=== PATIENT | male | born 1955 | race Caucasian/White ===

== ENCOUNTER 2023-05-05 12:04 | Inpatient (IN) | payer MEDICARE, OTHER, SELFPAY ==
[2023-05-05 08:44] VITALS: BMI 26.1
[2023-05-05 08:50] VITALS: BP 147/76
[2023-05-05 08:54] LABS: % Basophils 0.4 % (0-2); % Immature Granulocytes 0.2 % (0-0.5); % Monocytes 5.2 % (1.7-9.3); % Neutrophils 81.2 % (42.2-75.2); Absolute Eosinophils 0.1 10^3/uL (0-0.7); Absolute Lymphocytes 1.1 10^3/uL (1.2-3.4); Absolute Monocytes 0.5 10^3/uL (0.1-0.6); Absolute Neutrophils 7.5 10^3/uL (1.4-6.5); Hematocrit 46.5 % (39.0-52.0); Hemoglobin 16.6 g/dL (13.0-18.0); Mean Corp Hgb Conc. 35.7 g/dL (33.0-37.0); Mean Corpuscular Hgb 33.5 pg (27.0-31.0); Mean Corpuscular Volume 93.9 fL (80.0-94.0); Mean Platelet Volume 10.4 fL (7.4-10.4); Nucleated Red Blood Cells % 0 % (-); Platelet Count 264 10^3/uL (130-400); Red Blood Cell Count 4.95 10^6/uL (4.70-6.10); Red Cell Dist. Width 12.9 % (11.5-14.5); White Blood Cell Count 9.2 10^3/uL (4.8-10.8)
[2023-05-05 09:00] VITALS: BP 116/74
--- NOTE | 2023-05-05 09:08 | ED.GENMED ---
History of Present Illness
General
Chief Complaint: Vomiting Blood
Source: patient
Time Seen by Provider: 05/05/23 08:47
Travel History
Have you had any contact with someone who has COVID-19?: No
Do you have any symptoms of coronavirus? Fever > 100 degrees, chills, cough, shortness of breath, sore throat, loss of taste or smell, muscle aches, or headache?: No
History of Present Illness
History of Present Illness:
67-year-old male presents emergency room complaining of nausea vomiting. Patient vomited this morning around 8 AM. He states he woke up around 5 feeling nauseous. Has been having nausea in the mornings for the past few days. He also has
indigestion and heartburn. Patient has history of a anaplastic astrocytoma with resection. He also has a [employer] shunt. Due to the above he has significant limitations in his physical abilities. He denies headache. He denies any fever or chills. He
denies any significant abdominal pain other than the indigestion.
Past History
Past History
ED Past Medical History: Cancer (Brain astrocytoma with radiation and chemotherapy 2006 and hydrocephalus w/ shunt placement)
ED Past Surgical History: Other (brain biopsy and shunt placement)
Social History
Tobacco: Non-smoker
Alcohol: None
Drug: None
Personal:
Living: with family
Employment: Employed
Family History
Family History: Other (n/c)
Phy Exam
Physical Exam
Physical Exam:
General: Awake, Alert, Oriented X3. No acute distress.
Vitals: unremarkable
Head: Atraumatic
Eyes: Pupils equal, EOMI
Throat: Airway intact, no exudates
Neck: Trachea midline
Lungs: Clear and equal b/l
Heart: Regular rate, no murmurs
Abd: Soft, Nontender, No pulsatile mass
Neuro: Chronic extremity weakness but no new findings
Skin: Warm, dry, no rash
Extremities: pulses equal b/l, no edema
Course
Orders/Labs/Results
Orders:
Orders
05/05/23 08:44
EKG [Electrocardiogram (*1)] Urgent
Reason for Study: Fatigue / Weakness
EKG- Treatment ONCE
05/05/23 08:48
Type+Screen Urgent
Complete Blood Count/With Diff Urgent
Comprehensive Metabolic Panel Urgent
05/05/23 09:06
0.9% Sodium Chloride 1000 ml [Nss] 1,000 ml IV BOLUS
Ondansetron Injectable [Zofran] 4 mg IV NOW STA
05/05/23 09:21
US Abdomen Complete/Upper Urgent
Comment:
Reason For Exam: upper abd pain, elevated lft's
05/05/23 11:41
Pantoprazole [Protonix IV] 80 mg IV NOW STA
05/05/23 11:59
Admit/Transfer Patient As Directed
Co-Sign Provider:
Level of Care: Inpatient admission
Assign to:: Medical/Surgical
Physician / Group: Hospitalist
Diagnosis: Vomiting
Reason for Hospitalization: .
Expected length of stay greater than two midnights?: Yes
ELOS- Estimated Length of Stay in days: 3
I certify the patient meets the requirements for IP care: Yes
05/05/23 14:17
Consult Gastroenterology [GASTROINTESTINAL CONSULT] Routine
Consulting Provider: Hilario Carrion
Was physician already notified: Yes
Reason for consult: Vomiting
DX Deep Vein Thrombosis Video Routine
05/05/23 20:00
Heparin 5,000 units SC Q12
Abnormal Lab Results
05/05/23
08:48
MCH 33.5 H pg
(27.0-31.0)
Absolute Neuts (auto) 7.5 H 10^3/uL
(1.4-6.5)
Absolute Lymphs (auto) 1.1 L 10^3/uL
(1.2-3.4)
Neutrophils % 81.2 H %
(42.2-75.2)
Lymphocytes % 12.0 L %
(20.5-51.1)
Glucose 192 H mg/dl
(70-99)
Total Bilirubin 4.8 H mg/dl
(0.2-1.3)
AST 125 H U/L
(17-59)
ALT 487 H U/L
(0-50)
Alkaline Phosphatase 243 H U/L
(38-126)
05/05/23 08:48
05/05/23 08:48
Vital Signs
Initial and Last Documented VS:
Initial Vital Signs
Pulse Resp Pulse Ox
81 18 95
05/05/23 08:49 05/05/23 08:49 05/05/23 08:49
Last Documented Vital Signs
Temp Pulse Resp BP Pulse Ox
98.4 F 71 15 119/63 93
05/05/23 08:50 05/05/23 13:30 05/05/23 13:30 05/05/23 10:00 05/05/23 13:30
MDM/Problems Addressed
Differential Diagnosis Includes:
gastritis, PUD, choledocholithiasis,
MDM/Problems Addressed:
Pt presents with nausea and vomiting. He believes he vomited bloody emesis this morning. On physical exam he was noted to have scleral icterus. Lab work confirms the presence of elevated bilirubin level as well as elevated LFTs. Ultrasound was
obtained which shows a contracted gallbladder. Patient has had no further vomiting here in the emergency room. Nausea is improved with antiemetics. Stool is heme positive but it is brown stool not melanotic. Discussed with gastroenterology.
Will hospitalize the patient for monitoring of GI bleeding as well as evaluation of the elevated LFTs. Likely patient will have an MRCP tomorrow. Dose of IV Protonix given here.
*EKG
Interpreted by ED Provider?: Yes
Interpretation: normal
Heart Rate: 81
Rate: normal
Rhythm: sinus
Holley: normal axis
Interval: normal interval
QRS Pattern: normal QRS
Ischemia: no ischemia
*Compressor Battery Pellets Interpretation
Rate: normal
Interpretation: normal
Heart Rate: 81
Rhythm: sinus
*Critical Care Note
Total Time (30-74mins, 75-104mins- exclusive of procedures): Not Applicable
ED Attending Note
-
Portions of this chart may have been created with voice recognition software.� Occasional wrong word or��sound alike� substitutions may have occurred due to the inherent limitations of voice recognition software.
Discharge Plan
Departure
Patient Disposition: Admit
Date of Disposition: 05/05/23
Time of Disposition: 11:45
Admit to: Med/Surg
Presentation/result/management discussed w/ accepting MD/DO: Hospitalist
Condition: Fair
Discharge Problem:
Hematemesis, Elevated LFTs
Interventions
Interventions:
*Risk Screen - Suicide Last Done: 05/05/23 08:57
*General Assessment Last Done: 05/05/23 08:57
*Neglect/Abuse Screening Last Done: 05/05/23 08:57
*ED COVID-19 Vaccine History Last Done: 05/05/23 08:50
*Nursing Disposition Last Done: 05/05/23 14:11
QH-Lubmtb-Zvwoweswzr Assessment Last Done: 05/05/23 09:00
ED- Cardiac Assessment Last Done: 05/05/23 08:59
ED- Pulmonary Assessment Last Done: 05/05/23 08:58
Discharge Date and Time
Discharge Date/Time: 05/05/23 14:18
[2023-05-05] MEDS: ZOFRAN 4 MG IV (09:11)
[2023-05-05] MEDS: NSS 1000 IV (09:12)
[2023-05-05 09:13] LABS: ALT (SGPT) 487 U/L (0-50); AST (SGOT) 125 U/L (17-59); Albumin 4.3 g/dl (3.5-5.0); Alkaline Phosphatase 243 U/L (38-126); Blood Urea Nitrogen 13 mg/dl (9-20); Calcium 9.7 mg/dl (8.4-10.2); Carbon Dioxide 22 mmol/L (22-30); Chloride 106 mmol/L (98-107); Estimated Creatinine Clearance 73 ml/min; Glucose 192 mg/dl (70-99); Potassium 4.1 mmol/L (3.5-5.1); Sodium 136 mmol/L (135-145); Total Bilirubin 4.8 mg/dl (0.2-1.3); Total Protein 7.5 g/dl (6.3-8.2); eGFR > 60.00
[2023-05-05 10:00] VITALS: BP 119/63
--- NOTE | 2023-05-05 11:59 | HPS.HSE ---
Family Physician
-
Family Physician: Delta Canchola
Chief Complaint
-
Vomiting this morning
History of Present Illness
67 years old male came from home. History taken from the patient and his at bedside. The patient has been having nighttime nausea with vomiting in the last 2 to 3 days. He vomited coffee-ground emesis this morning and was brought into the
emergency room. He did not have chest pain or fever. He was given Zofran and felt fine. Currently he denies abdominal pain, reports feeling hungry would like to eat. Patient has history of hydrocephalus with shunt secondary to brain tumor that
was treated in 2006. He denies chest pain, headache, blurred vision, chills. In the ER , white count 9.2, hemoglobin 16.6. Normal potassium.
Medical History
Past Medical History
Past Medical History: Reports Other ( NPH with shunt placement, astrocytoma s/p radiation chemotherapy in 2006, hypertension, essential tremor, left hemiparesis, neurogenic bladder, gait dysfunction.)
Past Surgical History: Reports Other (No recent major surgery)
Social History
Tobacco: Non-smoker
Alcohol: None
Drug: None
Personal:
Living: With Family
Employment: Disabled
Family History
Family History: Not pertinent
Allergies / Home Medications
Allergies reflects when Allergies were last updated in [facility].
Home Medications with original date entered in [facility]
Allergy/Medication List:
Allergies
Allergy/AdvReac Type Severity Reaction Status Date / Time
gallidium Allergy Severe facial Uncoded 04/15/20 12:55
flushing
and
swelling
Home Medications
Doxylamine 0 tab PO HS 05/09/20
acetaminophen 325 mg tablet 650 mg PO Q6HPRN PRN MILD PAIN 05/09/20
methylphenidate HCl 10 mg tablet 10 mg PO BID@0700,1300 #120 tabs 05/09/20
propranolol 60 mg capsule,24 hr,extended release 120 mg PO DAILY #180 caps 05/09/20
sertraline 100 mg tablet 100 mg PO DAILY #90 tabs 05/09/20
trazodone 50 mg tablet 25 mg PO HS PRN sleep 05/05/23
Review of Systems
-
History Source: Patient
A 12 point ROS was completed and negative except as noted: Yes
Constitutional: Denies Fever, Night Sweats or Chills
EENT: Denies Sore Throat
Respiratory: Denies Cough
Cardiac: Denies Chest Pain
Abdomen/GI: Reports Nausea and Vomiting; Denies Abdominal Pain or Black Stools
: Denies Dysuria
Musculoskeletal: Denies Joint Pain or Edema
Neurological: Denies Numbness
Endocrine: Denies Temp Intolerance
Hematologic/Lymphatic: Denies Bruising
Psych: Denies Panic Disorder
Physical Exam
Vital Signs
Vital Signs
Temp Pulse Resp BP Pulse Ox
98.4 F 78 18 147/76 95
05/05/23 08:50 05/05/23 09:00 05/05/23 09:00 05/05/23 08:50 05/05/23 09:00
Physical Exam
General: No Apparent Distress and Comfortable
HEENT: Moist mucous membranes and Atraumatic
Respiratory: Clear
Cardiac: S1/S2 and Regular Rhythm
GI: Soft, Non Tender, Non Distended and Normal Bowel Sounds
Genito-urinary: No costovertebral tender
Musculoskeletal: No Cyanosis and No Edema
Skin: Warm; No Jaundice
Neuro: AO x 3 and Other (Chronic bilateral lower extremity weakness, left hemiparesis)
Psych: Calm; No Confused or Agitated
Laboratory Results
-
05/05/23 08:48
05/05/23 08:48
Laboratory Results
Total Bilirubin 4.8 mg/dl (0.2-1.3) H 05/05/23 08:48
AST 125 U/L (17-59) H 05/05/23 08:48
ALT 487 U/L (0-50) H 05/05/23 08:48
Alkaline Phosphatase 243 U/L (38-126) H 05/05/23 08:48
Impression/Plan
-
67 years old male presented with coffee-ground emesis
# Upper GI bleeding/vomiting
Admit the patient to the hospital
Monitor the patient on telemetry
Hemoglobin on admission around 16
Repeat hemoglobin later today
Antinausea medication
Protonix drip
Patient has no abdominal pain or nausea current time. No fever. No leukocytosis. No headache. No abdominal tenderness on deep palpation.
Case to be a liquid diet and nothing by mouth after midnight
Discussed with gastroenterology doctor
Appreciate GI help
# History of astrocytoma diagnosed 2006 status post chemotherapy and radiation 2006. He later developed hydrocephalus and had shunt.
Currently he is on disability. Bilateral lower extremity weakness. Wheelchair-bound but has good shoulder strength to transfer to wheelchair. Left hemiparesis.
Patient denies fever or chills. No leukocytosis. No abdominal pain or tenderness. No headache or blurred vision.
Patient has not had follow-up with a scan since 3 4 years ago. Will do head scan
# History of neurogenic bladder. Urinary incontinence. Able to control bowel movements.
# Primary hypertension. Continue with home medication. Blood pressure on admission 147/76.
# Insomnia, continue with sertraline.
# DVT prophylaxis
# Full code
Total time spent to see the patient, examine the patient on the floor, review data and lab results, discuss treatment plan with the patient, , GI doctor, Nursing staff and ER doctor around 75 minutes
[2023-05-05] MEDS: PROTONIX IV 80 MG IV (12:40)
[2023-05-05 14:30] VITALS: BMI 26.1
--- NOTE | 2023-05-05 15:00 | PTCARENOTE ---
Received pt from ED. Vital signs stable. Pt denies any chest pain or Shortness of breath. Skin grossly intact. Pt oriented to Unit and Plan of Care.
[2023-05-05 15:14] LABS: Hemoglobin 15.2 g/dL (13.0-18.0)
[2023-05-05] MEDS: PROTONIX 100 IV (15:15)
[2023-05-05 15:48] VITALS: BP 109/69
--- NOTE | 2023-05-05 17:00 | W.PN.UPDATE ---
Update Note
Progress Note Update
Addendum
CAT scan of the head was reviewed. Patient has no new neurological deficit. Suspect chronic changes on CT. Will observe for now.
Ultrasound of the abdomen showed fatty liver with abnormal liver function test, possible liver disease/cirrhosis. Will give the patient empiric IV Rocephin
End
[2023-05-05] MEDS: ROCEPHIN 1000 MG IV (17:12)
[2023-05-05] MEDS: STERILE WATER FOR INJECTION 10 ML IV (17:12)
[2023-05-05 19:41] VITALS: BP 140/74
[2023-05-05] MEDS: HEPARIN 5000 UNITS SC (20:13)
[2023-05-05 22:57] VITALS: BP 110/58
[2023-05-06] MEDS: PROTONIX 100 IV ×3 (00:30→18:54)
[2023-05-06 03:37] VITALS: BP 113/76
[2023-05-06 07:45] VITALS: BP 104/72
--- NOTE | 2023-05-06 08:15 | W.PN.HOSP.TC ---
Today's Communication/Plan
-
MRI/MRCP tomorrow
NPO
Assessment / Plan
Assessment / Plan
Physical Exam
General: No Apparent Distress and Comfortable
HEENT: Moist mucous membranes and Atraumatic
Respiratory: Clear
Cardiac: S1/S2 and Regular Rhythm
GI: Soft, Non Tender, Non Distended and Normal Bowel Sounds
Genito-urinary: No costovertebral tender
Musculoskeletal: No Cyanosis and No Edema
Skin: Warm; No Jaundice
Neuro: AO x 3 and Other (Chronic bilateral lower extremity weakness, left hemiparesis)
Psych: Calm

Assessment/Plan
67 years old male presented with coffee-ground emesis
#Upper GI bleeding/vomiting
#Presentation with coffee-ground emesis
Monitor the patient on telemetry
Hemoglobin on admission around 16
Hgb stable overall
Antinausea medication prn (but make sure QTc is okay)
Protonix drip
Patient has no abdominal pain or nausea current time.� No fever.� No leukocytosis.� No headache.� No abdominal tenderness on deep palpation.
Consulted GI, recommendations appreciated
NPO for MRI/MRCP
Appreciate GI help
Ultrasound of the abdomen showed fatty liver with abnormal liver function test, possible liver disease/cirrhosis. Will give the patient empiric IV Rocephin
# History of brain astrocytoma diagnosed 2006 status post chemotherapy and radiation 2006.� He later developed hydrocephalus and had shunt.
Currently he is on disability.� Bilateral lower extremity weakness.� Wheelchair-bound but has good shoulder strength to transfer to wheelchair.� Left hemiparesis.
Patient denies fever or chills.� No leukocytosis.� No abdominal pain or tenderness.� No headache or blurred vision.
Patient has not had follow-up with a scan since 3 4 years ago.�
CAT scan of the head was reviewed. Patient has no new neurological deficit. Suspect chronic changes on CT. Will observe for now.
# History of neurogenic bladder.� Urinary incontinence.� Able to control bowel movements.
# Primary hypertension.� Continue with home medication.� Blood pressure on admission 147/76.
# Insomnia, continue with sertraline.
# DVT prophylaxis
# Full code
Anticipated Discharge: 24 - 48 hours
Subjective/Interval History
-
Date of Service: May 06, 2023
Patient was seen and examined. Other than wondering if his diet could be upgraded, he had no new symptoms or complaints to report.
Objective Data
-
Labs:
Laboratory Results
05/06/23
08:02
WBC Pending
Hgb Pending
Hct Pending
Plt Count Pending
Sodium Pending
Potassium Pending
Chloride Pending
Carbon Dioxide Pending
BUN Pending
Creatinine Pending
Glucose Pending
Calcium Pending
Total Bilirubin Pending
AST Pending
ALT Pending
Alkaline Phosphatase Pending
Vital Signs:
Vital Signs
Temp Pulse Resp BP Pulse Ox
98.5 F 77 16 104/72 95
05/06/23 07:45 05/06/23 07:45 05/06/23 07:45 05/06/23 07:45 05/06/23 07:45
I&O
05/05/23 05/06/23 05/07/23
06:59 06:59 06:59
Intake Total 480 / 480
Output Total 325 / 325
Balance 155 / 155
[2023-05-06] MEDS: INDERAL LA 120 MG PO (08:45)
[2023-05-06] MEDS: HEPARIN 5000 UNITS SC ×2 (08:45→20:46)
[2023-05-06 08:59] LABS: Hematocrit 40.9 % (39.0-52.0); Hemoglobin 14.2 g/dL (13.0-18.0); Mean Corp Hgb Conc. 34.7 g/dL (33.0-37.0); Mean Corpuscular Hgb 33.7 pg (27.0-31.0); Mean Corpuscular Volume 97.1 fL (80.0-94.0); Platelet Count 208 10^3/uL (130-400); Red Blood Cell Count 4.21 10^6/uL (4.70-6.10); Red Cell Dist. Width 13.2 % (11.5-14.5); White Blood Cell Count 5.2 10^3/uL (4.8-10.8)
[2023-05-06 09:33] LABS: ALT (SGPT) 374 U/L (0-50); AST (SGOT) 106 U/L (17-59); Albumin 3.8 g/dl (3.5-5.0); Alkaline Phosphatase 187 U/L (38-126); Blood Urea Nitrogen 13 mg/dl (9-20); Calcium 9.4 mg/dl (8.4-10.2); Carbon Dioxide 26 mmol/L (22-30); Chloride 105 mmol/L (98-107); Estimated Creatinine Clearance 66 ml/min; Glucose 118 mg/dl (70-99); Magnesium 1.9 mg/dl (1.6-2.3); Potassium 3.9 mmol/L (3.5-5.1); Sodium 138 mmol/L (135-145); Total Bilirubin 2.1 mg/dl (0.2-1.3); Total Protein 6.4 g/dl (6.3-8.2); eGFR > 60.00
[2023-05-06 11:09] VITALS: BP 135/63
--- NOTE | 2023-05-06 12:43 | CON.GI ---
Addendum entered and electronically signed by Hilario Carrion MD 05/06/23 16:01:
I saw and examined the patient.
The CONSULTANT EDUCATION's note was reviewed and I agree with the note.
67-year-old male with past medical history of astrocytoma s/p radiation and chemotherapy in 2006, NPH with shunt, hypertension, essential tremor, left hemiparesis, neurogenic bladder with gait dysfunction who presents to the emergency room with
nocturnal nausea and vomiting for the last couple days.� Patient with brown emesis in the morning that he was brought to the emergency room and we were asked to evaluate for the same as well as elevated LFTs.� The patient states that this past
Saturday he started to feel epigastric discomfort.� He thought that it may have been indigestion so he started eating Tums.� He states he ate 4-6 of these a day.� This did not alleviate his symptoms.� He states that he just had a generalized
discomfort in his upper abdomen.� He cannot describe this further.� He noticed the following day he started having 'cola colored' urine.� Him and his also noticed the color of his stool became plexiglas former and was a campos color.� On Saturday he had
vomiting which was brown in color.� This was not coffee-ground like but more of a straight brown.� They did state that there was a slight red tinge to the outer edges of the vomitus.� Patient with WBC 5.2, hemoglobin of 14.2 down from 16.6 however
his baseline appears to be around 14.7, MCV of 97.1, MCH 33.7, platelets 208, sodium 138, potassium 3.9 chloride 105, CO2 26, BUN of 13, creatinine 1.0, glucose 118, total bilirubin 2.1 down from 4.8, this was not fractionated, AST of 106 down from
125, ALT 374 down from 47, alk phos 187 down from 243.� Ultrasound of the abdomen shows liver at upper limits of normal.� Increased echogenicity throughout consistent with fatty infiltration.� Overall echotexture is somewhat coarsened.� 1.4 cm
anechoic structure in the right hepatic lobe most consistent with a simple cyst.� Smaller 6 mm area also likely represents cyst.� There is no intra or extrahepatic biliary dilatation.� CBD measures 4 mm.� Gallbladder is contracted with gallstones.
Impression:
--Abdominal pain/vomiting/coffee-ground emesis/elevated LFT-likely biliary etiology. Currently feeling better. LFTs trending down. Possible passed stone
-- History of astrocytoma s/p radiation and chemotherapy in 2006
-- Left hemiparesis/wheelchair-bound
-- Neurogenic bladder
plan
Will get MRI/MRCP without gado
Trend LFT
N.p.o. for now
Continue PPI
Antiemetics as needed
Surgical eval if continues to be symptomatic
Original Note:
Consultation
-
Date/Time Consultation Requested: 05/05/23 1417
Date/Time Consultation Performed: 05/06/23 1243
Requesting Provider: Dr. Abel
Performing Provider: Dr. Carrion/STEPHY Kay
Reason for Consultation: vomiting
Medical History
Chief Complaint / HPI
Chief Complaint: n/v
History of Present Illness:
67-year-old male with past medical history of astrocytoma s/p radiation and chemotherapy in 2006, NPH with shunt, hypertension, essential tremor, left hemiparesis, neurogenic bladder with gait dysfunction who presents to the emergency room with
nocturnal nausea and vomiting for the last couple days. Patient with brown emesis in the morning that he was brought to the emergency room and we were asked to evaluate for the same as well as elevated LFTs. The patient states that this past
Saturday he started to feel epigastric discomfort. He thought that it may have been indigestion so he started eating Tums. He states he ate 4-6 of these a day. This did not alleviate his symptoms. He states that he just had a generalized
discomfort in his upper abdomen. He cannot describe this further. He noticed the following day he started having 'cola colored' urine. Him and his also noticed the color of his stool became plexiglas former and was a campos color. On Saturday he had
vomiting which was brown in color. This was not coffee-ground like but more of a straight brown. They did state that there was a slight red tinge to the outer edges of the vomitus. Because of this and his discomfort they decided to come to the
emergency room. The patient denies any fevers, chills, melena, hematochezia, dysphagia or odynophagia. He denies any early satiety or unintentional weight loss. He denies any new medications, Tylenol, hepatitis, jaundice or liver disease. He
denies any tattoos or piercings. He has had no new meds or changes in medications. He denies any raw or spoiled food. There is been no sick contacts.
Past Medical History
Past Medical History: Other (Astrocytoma status postradiation chemotherapy, NPH with shunt, hypertension, essential tremor, left hemiparesis, neurogenic bladder, gait dysfunction)
Past Surgical History: Other (OPERATIONS WELDER shunt, brain biopsy, OPERATIONS WELDER shunt revision)
Social History
Tobacco: Non-Smoker
Alcohol: None
Drug: None
Personal:
Living: With Family
Employment: Disabled
Family History
Family History: Other (No family history of gastrointestinal malignancy or inflammatory bowel disease)
Allergies / Home Medications
Allergy/AdvReac Type Severity Reaction Status Date / Time
gallidium Allergy Severe facial Uncoded 04/15/20 12:55
flushing
and
swelling
Medication Instructions Recorded
acetaminophen 325 mg tablet 650 mg PO Q6HPRN PRN MILD PAIN 05/09/20
propranolol 60 mg capsule,24 120 mg PO DAILY #180 caps 05/09/20
hr,extended release
trazodone 50 mg tablet 25 mg PO HS PRN sleep 05/05/23
Doxylamine 0 tab PO HS Sleep 05/06/23
methylphenidate HCl 10 mg tablet 10 mg PO BID@0700,1300 ADHD 05/06/23
sertraline 100 mg tablet 100 mg PO DAILY Depression 05/06/23
Review of Systems
-
All other systems: A 12 pt ROS was Negative except as stated above in HPI
Vital Signs
Temp Pulse Resp BP Pulse Ox
98.0 F 74 16 135/63 97
05/06/23 11:09 05/06/23 11:09 05/06/23 11:09 05/06/23 11:09 05/06/23 11:09
Physical Exam
Exam
General: No Apparent Distress
HEENT: Anicteric
Respiratory: Clear
Cardiac: Regular Rhythm
GI: Soft, Non Tender, Non Distended and Normal Bowel Sounds
Skin: Warm and Dry
Neuro: AO x 3
Psych: Calm
Results
WBC 5.2 10^3/uL (4.8-10.8) 05/06/23 08:02
Hgb 14.2 g/dL (13.0-18.0) 05/06/23 08:02
Hct 40.9 % (39.0-52.0) 05/06/23 08:02
MCV 97.1 fL (80.0-94.0) H 05/06/23 08:02
Plt Count 208 10^3/uL (130-400) D 05/06/23 08:02
Absolute Neuts (auto) 7.5 10^3/uL (1.4-6.5) H 05/05/23 08:48
Sodium 138 mmol/L (135-145) 05/06/23 08:02
Potassium 3.9 mmol/L (3.5-5.1) 05/06/23 08:02
Chloride 105 mmol/L (98-107) 05/06/23 08:02
Carbon Dioxide 26 mmol/L (22-30) 05/06/23 08:02
BUN 13 mg/dl (9-20) 05/06/23 08:02
Creatinine 1.1 mg/dL (0.7-1.3) 05/06/23 08:02
Calcium 9.4 mg/dl (8.4-10.2) 05/06/23 08:02
Total Bilirubin 2.1 mg/dl (0.2-1.3) H D 05/06/23 08:02
AST 106 U/L (17-59) H 05/06/23 08:02
ALT 374 U/L (0-50) H 05/06/23 08:02
Alkaline Phosphatase 187 U/L (38-126) H 05/06/23 08:02
Diagnostic Image Results:
CT Head:
IMPRESSION:
There is a small focus of increased density within the right parietal lobe at the campos and white matter junction. Morphologically, I feel that this is most likely a small focus of calcification. However, a small focus of hemorrhage is possible. See
above discussion. As warranted, short-term interval CT follow-up could be considered, with calcification expected to persist, while hemorrhage would be expected to slowly decrease in density with time.
Since examination 2019, there has been progressive volume loss and decreased density within the white matter of the right frontal and parietal lobes. As this appears to relatively spare the cortex, this is most likely on the basis of changes from
radiation therapy. However, this could also possibly represent changes from interval infarction.
Electronically signed by Dwight Min MD 05/05/2023 2:29 PM
Ultrasound abdomen:
Contracted gallbladder, with shadowing posteriorly, consistent with gallstones, however the gallbladder could not be fully evaluated due to the contracted state. There is no pericholecystic fluid and there is a negative sonographic Stallworth's sign.
Pancreas could not be visualized.
Fatty infiltration of the liver.
Electronically signed by Katrina Saul MD 05/05/2023 11:27 AM
Prior GI Procedures:
EGD: None
Colonoscopy: 10/31/2015 ([facility]) �� - The entire examined colon is normal.
�� � � � � � � � � � - The examined portion of the ileum was normal.
Assessment / Plan
-
67-year-old male with past medical history of astrocytoma s/p radiation and chemotherapy in 2006, NPH with shunt, hypertension, essential tremor, left hemiparesis, neurogenic bladder with gait dysfunction who presents to the emergency room with
nocturnal nausea and vomiting for the last couple days. Patient with brown emesis in the morning that he was brought to the emergency room and we were asked to evaluate for the same as well as elevated LFTs. The patient states that this past
Saturday he started to feel epigastric discomfort. He thought that it may have been indigestion so he started eating Tums. He states he ate 4-6 of these a day. This did not alleviate his symptoms. He states that he just had a generalized
discomfort in his upper abdomen. He cannot describe this further. He noticed the following day he started having 'cola colored' urine. Him and his also noticed the color of his stool became plexiglas former and was a campos color. On Saturday he had
vomiting which was brown in color. This was not coffee-ground like but more of a straight brown. They did state that there was a slight red tinge to the outer edges of the vomitus. Patient with WBC 5.2, hemoglobin of 14.2 down from 16.6 however
his baseline appears to be around 14.7, MCV of 97.1, MCH 33.7, platelets 208, sodium 138, potassium 3.9 chloride 105, CO2 26, BUN of 13, creatinine 1.0, glucose 118, total bilirubin 2.1 down from 4.8, this was not fractionated, AST of 106 down from
125, ALT 374 down from 47, alk phos 187 down from 243. Ultrasound of the abdomen shows liver at upper limits of normal. Increased echogenicity throughout consistent with fatty infiltration. Overall echotexture is somewhat coarsened. 1.4 cm
anechoic structure in the right hepatic lobe most consistent with a simple cyst. Smaller 6 mm area also likely represents cyst. There is no intra or extrahepatic biliary dilatation. CBD measures 4 mm. Gallbladder is contracted with gallstones.
Impression:
Vomiting
Abdominal pain
Elevated LFTs
Plan:
-N.p.o. until imaging resulted
-MRI/MRCP, no anshul patient has an allergy
-Fractionate bilirubin
-Hepatitis panel
-Trend LFTs
-Continue PPI
-CBC in the a.m.
-Consider surgical consult
-Patient will likely need outpatient workup for fatty liver, including FibroScan.
Data Reviewed
-
Radiology: Report Reviewed by me
Old Records: Reviewed
-
-
Thank you for consultation and allowing me to participate in the patient's care. Please call the stock preparation supervisor GI physician during the after hours with any questions or concerns.
--- NOTE | 2023-05-06 15:48 | CM ---
home visit field care manager reviewed patient's chart and met with patient and patient resides with his spouse in a 2 story home, patient requires assist and has an aide in home, to assist with adl's from [employer]', patient has a walker, cane and wheelchair
in home and chair glide to 2nd floor where patient sleeps. Patient has a prescription plan and uses [facility].
PCP: Dr Canchola
Plan; Home with spouse when stable with aide.
[2023-05-06 15:56] VITALS: BP 135/68
[2023-05-06 17:07] VITALS: BMI 26.1
[2023-05-06] MEDS: STERILE WATER FOR INJECTION 10 ML IV (17:09)
[2023-05-06] MEDS: ROCEPHIN 1000 MG IV (17:09)
[2023-05-06 18:48] LABS: Hepatitis B Surface Antigen Negative (Negative)
[2023-05-06 19:05] LABS: Hepatitis B Surface Antibody Negative; Hepatitis C Antibody Negative (Negative)
[2023-05-06 21:18] VITALS: BP 136/84
[2023-05-06] MEDS: DESYREL 25 MG PO (21:59)
[2023-05-06 23:55] VITALS: BP 110/55
[2023-05-07 04:21] VITALS: BP 135/65
[2023-05-07] MEDS: PROTONIX 100 IV ×2 (04:57→14:49)
[2023-05-07 06:00] VITALS: BMI 24.5
[2023-05-07 07:20] VITALS: BP 142/72
[2023-05-07 08:06] LABS: ALT (SGPT) 320 U/L (0-50); AST (SGOT) 92 U/L (17-59); Albumin 3.8 g/dl (3.5-5.0); Alkaline Phosphatase 177 U/L (38-126); Direct Bilirubin 0.8 mg/dl (0.0-0.4); Total Bilirubin 1.6 mg/dl (0.2-1.3); Total Protein 6.5 g/dl (6.3-8.2)
[2023-05-07] MEDS: HEPARIN 5000 UNITS SC ×2 (09:22→19:48)
[2023-05-07] MEDS: INDERAL LA 120 MG PO (09:22)
[2023-05-07 10:39] LABS: % Basophils 1.4 % (0-2); % Eosinophils 6.3 % (0-6); % Immature Granulocytes 0.2 % (0-0.5); % Lymphocytes 26.9 % (20.5-51.1); % Monocytes 7.9 % (1.7-9.3); % Neutrophils 57.3 % (42.2-75.2); Absolute Basophils 0.1 10^3/uL (0-0.2); Absolute Eosinophils 0.3 10^3/uL (0-0.7); Absolute Lymphocytes 1.3 10^3/uL (1.2-3.4); Absolute Monocytes 0.4 10^3/uL (0.1-0.6); Absolute Neutrophils 2.8 10^3/uL (1.4-6.5); Hematocrit 41.4 % (39.0-52.0); Hemoglobin 15.1 g/dL (13.0-18.0); Mean Corp Hgb Conc. 36.5 g/dL (33.0-37.0); Mean Corpuscular Hgb 34.3 pg (27.0-31.0); Mean Corpuscular Volume 94.1 fL (80.0-94.0); Mean Platelet Volume 10.9 fL (7.4-10.4); Nucleated Red Blood Cells % 0 % (-); Platelet Count 222 10^3/uL (130-400); Red Cell Dist. Width 12.9 % (11.5-14.5); White Blood Cell Count 4.9 10^3/uL (4.8-10.8)
[2023-05-07 10:44] LABS: ALT (SGPT) 324 U/L (0-50); AST (SGOT) 91 U/L (17-59); Alkaline Phosphatase 179 U/L (38-126); Blood Urea Nitrogen 14 mg/dl (9-20); Calcium 9.8 mg/dl (8.4-10.2); Carbon Dioxide 22 mmol/L (22-30); Chloride 108 mmol/L (98-107); Estimated Creatinine Clearance 73 ml/min; Glucose 116 mg/dl (70-99); Potassium 3.9 mmol/L (3.5-5.1); Sodium 139 mmol/L (135-145); Total Bilirubin 1.6 mg/dl (0.2-1.3); Total Protein 6.8 g/dl (6.3-8.2); eGFR > 60.00
[2023-05-07 11:55] VITALS: BP 159/76
[2023-05-07] MEDS: MIRALAX 17 GRAMS PO (12:46)
[2023-05-07] MEDS: ZOLOFT 100 MG PO (13:22)
--- NOTE | 2023-05-07 13:58 | PTOTSP ---
ST Dysphagia Evaluation
Oropharyngeal function appears intact at the bedside
Pt received awake/alert oriented x4 with spouse present at the bedside. Ate full liquid meal without difficulty. Per pt/spouse report no chewing or swallowing difficulty prior to this admission. Speech/language/cog at baseline
Self presentation of purees and thin liquids demo adequate oral access/containment, functional bolus manipulation and bolus was orally cleared. Thin liquids by straw sip swallow appears prompt. No overt s/sx of aspiration observed.
Recommend
1. Advance diet as tolerated to regular solids/thin liquids, per physician/GI
2. Meds oral with sips of water
3. No further acute SENIOR APPLICATION SOFTWARE ENGINEER needs. SENIOR APPLICATION SOFTWARE ENGINEER signing off please reconsult as needed
--- NOTE | 2023-05-07 14:18 | CM ---
Home with aides when stable.
Plan; Home with aides when stable.
[2023-05-07 15:55] VITALS: BP 143/84
--- NOTE | 2023-05-07 17:04 | W.PN.HOSP.TC ---
Today's Communication/Plan
-
MRI/MRCP today
Assessment / Plan
Assessment / Plan
Physical Exam
General: No Apparent Distress and Comfortable
HEENT: Moist mucous membranes and Atraumatic
Respiratory: Clear
Cardiac: S1/S2 and Regular Rhythm
GI: Soft, Non Tender, Non Distended and Normal Bowel Sounds
Musculoskeletal: No Cyanosis and No Edema
Skin: Warm. Dry.
Neuro: AAO x 3 and Other (Chronic bilateral lower extremity weakness, left hemiparesis)
Psych: Calm

Assessment/Plan
67 years old male presented with coffee-ground emesis
#Upper GI bleeding/vomiting
#Presentation with coffee-ground emesis
Monitor the patient on telemetry
Hemoglobin on admission around 16
Hgb stable overall
Antinausea medication prn (but make sure QTc is okay)
Protonix drip
Patient has no abdominal pain or nausea current time.� No fever.� No leukocytosis.� No headache.� No abdominal tenderness on deep palpation.
Consulted GI, recommendations appreciated
MRI/MRCP today
Appreciate GI help
Ultrasound of the abdomen showed fatty liver with abnormal liver function test, possible liver disease/cirrhosis. Will give the patient empiric IV Rocephin
# History of brain astrocytoma diagnosed 2006 status post chemotherapy and radiation 2006.� He later developed hydrocephalus and had shunt.
Currently he is on disability.� Bilateral lower extremity weakness.� Wheelchair-bound but has good shoulder strength to transfer to wheelchair.� Left hemiparesis.
Patient denies fever or chills.� No leukocytosis.� No abdominal pain or tenderness.� No headache or blurred vision.
Patient has not had follow-up with a scan since 3 4 years ago.�
CAT scan of the head was reviewed. Patient has no new neurological deficit. Suspect chronic changes on CT. Will observe for now.
# History of neurogenic bladder.� Urinary incontinence.� Able to control bowel movements.
# Primary hypertension.� Continue with home medication.� Blood pressure on admission 147/76.
# Insomnia, continue with sertraline.
# DVT prophylaxis
# Full code
Anticipated Discharge: > 48 hours
Subjective/Interval History
-
Date of Service: May 07, 2023
Patient was seen and examined. He reported no new symptoms or complaints.
Objective Data
-
Labs:
Laboratory Results
05/07/23 05/07/23
07:06 09:46
WBC 4.9
Hgb 15.1
Hct 41.4
Plt Count 222
Sodium 139
Potassium 3.9
Chloride 108 H
Carbon Dioxide 22
BUN 14
Creatinine 1.0
Glucose 116 H
Calcium 9.8
Total Bilirubin 1.6 H 1.6 H
AST 92 H 91 H
ALT 320 H 324 H
Alkaline Phosphatase 177 H 179 H
Vital Signs:
Vital Signs
Temp Pulse Resp BP Pulse Ox
97.9 F 75 16 143/84 95
05/07/23 15:55 05/07/23 15:55 05/07/23 15:55 05/07/23 15:55 05/07/23 15:55
I&O
05/06/23 05/07/23 05/08/23
06:59 06:59 06:59
Intake Total 480 / 480 960 / 960
Output Total 325 / 325 1100 / 1100
Balance 155 / 155 -140 / -140
[2023-05-07] MEDS: STERILE WATER FOR INJECTION 10 ML IV (17:15)
[2023-05-07] MEDS: ROCEPHIN 1000 MG IV (17:15)
--- NOTE | 2023-05-07 18:10 | W.PN.GI.CBS2 ---
Today's Communication / Plan
-
check hep IgM, advance diet
Assessment / Plan
-
67-year-old male with past medical history of astrocytoma s/p radiation and chemotherapy in 2006, NPH with shunt, hypertension, essential tremor, left hemiparesis, neurogenic bladder with gait dysfunction who presents to the emergency room with
nocturnal nausea and vomiting for the last couple days. Patient with brown emesis in the morning that he was brought to the emergency room and we were asked to evaluate for the same as well as elevated LFTs. The patient states that this past
Saturday he started to feel epigastric discomfort. He thought that it may have been indigestion so he started eating Tums. He states he ate 4-6 of these a day. This did not alleviate his symptoms. He states that he just had a generalized
discomfort in his upper abdomen. He cannot describe this further. He noticed the following day he started having 'cola colored' urine. Him and his also noticed the color of his stool became service order clerk and was a campos color. On Saturday he had
vomiting which was brown in color. This was not coffee-ground like but more of a straight brown. They did state that there was a slight red tinge to the outer edges of the vomitus. Patient with WBC 5.2, hemoglobin of 14.2 down from 16.6 however
his baseline appears to be around 14.7, MCV of 97.1, MCH 33.7, platelets 208, sodium 138, potassium 3.9 chloride 105, CO2 26, BUN of 13, creatinine 1.0, glucose 118, total bilirubin 2.1 down from 4.8, this was not fractionated, AST of 106 down from
125, ALT 374 down from 47, alk phos 187 down from 243. Ultrasound of the abdomen shows liver at upper limits of normal. Increased echogenicity throughout consistent with fatty infiltration. Overall echotexture is somewhat coarsened. 1.4 cm
anechoic structure in the right hepatic lobe most consistent with a simple cyst. Smaller 6 mm area also likely represents cyst. There is no intra or extrahepatic biliary dilatation. CBD measures 4 mm. Gallbladder is contracted with gallstones.
MRCP done, images reviewed and report also reviewed. No biliary dilation or filling defects to suggest biliary etiology. GB contracted and not well-visualized and differential included possible malignancy, however US did not show any mass lesions.
His LFT is improving but etiology remains unclear. Hepatitis B/C negative. Will check for hepatitis A IgM. Advance diet to FLD and if tolerated, solids tomorrow.
Total Time Spent with Patient (in minutes): 35
Subjective
Subjective
Date of Service: May 07, 2023
nausea improving
Objective
Data Reviewed
Laboratory Data:
Laboratory Results
05/07/23 09:46
05/07/23 09:46
Laboratory Results
Magnesium 2.0 mg/dl (1.6-2.3) 05/07/23 09:46
Total Bilirubin 1.6 mg/dl (0.2-1.3) H 05/07/23 09:46
AST 91 U/L (17-59) H 05/07/23 09:46
ALT 324 U/L (0-50) H 05/07/23 09:46
Alkaline Phosphatase 179 U/L (38-126) H 05/07/23 09:46
Vital Signs and I&O:
Vital Signs
Temp Pulse Resp BP Pulse Ox
97.9 F 75 16 143/84 95
05/07/23 15:55 05/07/23 15:55 05/07/23 15:55 05/07/23 15:55 05/07/23 15:55
I&O
05/06/23 05/07/23 05/08/23
06:59 06:59 06:59
Intake Total 480 / 480 960 / 960
Output Total 325 / 325 1100 / 1100
Balance 155 / 155 -140 / -140
[2023-05-07 19:00] VITALS: BP 119/83
[2023-05-07 19:37] LABS: Hepatitis A IgM Antibody Negative (Negative)
[2023-05-07] MEDS: DESYREL 25 MG PO (22:18)
[2023-05-07 23:00] VITALS: BP 101/69
[2023-05-08] MEDS: PROTONIX 100 IV (00:23)
[2023-05-08 03:00] VITALS: BP 158/78
--- NOTE | 2023-05-08 03:34 | DOWNTIME ---
There was a [employer] Client Electrical Manufacturing Engineer Downtime on 05/08/2023 from 0100 to 05/08/2023 at 0322. Downtime documentation of patient's care, including medication administrations, has been reconciled in the electronic record per guidelines. Refer to the
patient's paper chart under the miscellaneous tab to see printed paper medication records and downtime forms.
[2023-05-08 06:00] VITALS: BMI 24.5
[2023-05-08 07:55] VITALS: BP 139/77
[2023-05-08] MEDS: HEPARIN 5000 UNITS SC (08:22)
[2023-05-08] MEDS: INDERAL LA 120 MG PO (08:23)
[2023-05-08] MEDS: ZOLOFT 100 MG PO (08:24)
[2023-05-08] MEDS: MIRALAX 17 GRAMS PO (08:24)
[2023-05-08] MEDS: PROTONIX IV (11:13)
[2023-05-08 11:30] VITALS: BP 127/73
--- NOTE | 2023-05-08 12:06 | CM ---
applications engineering manager reviewed patient's chart and plan is to home with spouse and caregivers.
Plan; Home with spouse and caregivers.
--- NOTE | 2023-05-08 12:31 | W.PN.UPDATE ---
Update Note
Progress Note Update
pt tolerating solid diet, Hep A IgM -ve, if repeat LFT today is further improved, ok for d/c home from GI standpoint. Will s/o, pls call with questions.
[2023-05-08 14:03] LABS: ALT (SGPT) 257 U/L (0-50); AST (SGOT) 80 U/L (17-59); Albumin 4.1 g/dl (3.5-5.0); Alkaline Phosphatase 149 U/L (38-126); Blood Urea Nitrogen 17 mg/dl (9-20); Calcium 9.4 mg/dl (8.4-10.2); Carbon Dioxide 19 mmol/L (22-30); Chloride 108 mmol/L (98-107); Estimated Creatinine Clearance 66 ml/min; Glucose 143 mg/dl (70-99); Potassium 4.6 mmol/L (3.5-5.1); Sodium 135 mmol/L (135-145); Total Bilirubin 1.5 mg/dl (0.2-1.3); eGFR > 60.00
--- NOTE | 2023-05-08 14:07 | W.PN.HOSP.TC ---
Today's Communication/Plan
-
Discharge today
Assessment / Plan
Assessment / Plan
Physical Exam
General: No Apparent Distress and Comfortable
HEENT: Moist mucous membranes and Atraumatic
Respiratory: Clear
Cardiac: S1/S2 and Regular Rhythm
GI: Soft, Non Tender, Non Distended and Normal Bowel Sounds
Musculoskeletal: No Cyanosis and No Edema
Skin: Warm. Dry.
Neuro: AAO x 3 and Other (Chronic bilateral lower extremity weakness, left hemiparesis)
Psych: Calm

MRI Abdomen Without Contrast results as per radiologist's report:
IMPRESSION:
Limited examination without IV contrast. There are multiple foci of fluid signal intensity within the liver most consistent with tiny cysts. The largest measures 1.5 cm.
There is no biliary ductal dilatation. No intraluminal filling defects.
The gallbladder is contracted, and abnormal, with ill-definition of the fundus. This could represent chronic cholecystitis. Differential includes neoplasm. Mildly prominent portacaval lymph node is nonspecific, likely reactive/ inflammatory.
Tiny 2 mm fluid signal intensity focus in the tail the pancreas likely represents a dilated side branch however follow-up with annual screening is advised to evaluate for any change.
Simple cysts in the right kidney.
Abdominal Ultrasound results as per radiologist's report:
IMPRESSION:
Contracted gallbladder, with shadowing posteriorly, consistent with gallstones, however the gallbladder could not be fully evaluated due to the contracted state. There is no pericholecystic fluid and there is a negative sonographic Stallworth's sign.
Pancreas could not be visualized.
Fatty infiltration of the liver.

Assessment/Plan
67 years old male presented with coffee-ground emesis
#Upper GI bleeding/vomiting
#Presentation with coffee-ground emesis
Hemoglobin on admission around 16
Hgb stable overall
Antinausea medication prn (but make sure QTc is okay)
Protonix drip
Patient has no abdominal pain or nausea current time.� No fever.� No leukocytosis.� No headache.� No abdominal tenderness on deep palpation.
Consulted GI, recommendations appreciated
MRI/MRCP findings as above
Abdominal Ultrasound results as above
Appreciate GI help
Ultrasound of the abdomen showed fatty liver with abnormal liver function test, possible liver disease/cirrhosis.
Closely follow-up with GI outpatient
# History of brain astrocytoma diagnosed 2006 status post chemotherapy and radiation 2006.� He later developed hydrocephalus and had shunt.
Currently he is on disability.� Bilateral lower extremity weakness.� Wheelchair-bound but has good shoulder strength to transfer to wheelchair.� Left hemiparesis.
Patient denies fever or chills.� No leukocytosis.� No abdominal pain or tenderness.� No headache or blurred vision.
Patient has not had follow-up with a scan since 3-4 years ago.�
CAT scan of the head was reviewed. Patient has no new neurological deficit. Suspect chronic changes on CT. Will observe for now -- follow-up closely with outpatient neurologist/neurosurgeon.
# History of neurogenic bladder.� Urinary incontinence.� Able to control bowel movements.
# Primary hypertension.� Continue with home medication.� Blood pressure on admission 147/76.
# Insomnia, continue with sertraline.
# DVT prophylaxis: Heparin
# Full code
More than 30 minutes spent in discharge including
Final examination of the patient
Summarizing hospital stay
Instructions for continuing care to all relevant caregivers
Preparation of discharge records, prescriptions, and referral forms
Total time spent (in minutes): 39
Anticipated Discharge: Today
Subjective/Interval History
-
Date of Service: May 08, 2023
Patient was seen and examined. He reported no new symptoms or complaints and would be happy to be discharged today.
Objective Data
-
Labs:
Laboratory Results
05/08/23
13:28
Sodium 135
Potassium 4.6
Chloride 108 H
Carbon Dioxide 19 L
BUN 17
Creatinine 1.1
Glucose 143 H
Calcium 9.4
Total Bilirubin 1.5 H
AST 80 H
ALT 257 H
Alkaline Phosphatase 149 H
Vital Signs:
Vital Signs
Temp Pulse Resp BP Pulse Ox
97.8 F 72 16 127/73 96
05/08/23 11:30 05/08/23 11:30 05/08/23 11:30 05/08/23 11:30 05/08/23 11:30
I&O
05/07/23 05/08/23 05/09/23
06:59 06:59 06:59
Intake Total 960 / 960 1920 / 1920
Output Total 1100 / 1100 500 / 500
Balance -140 / -140 1420 / 1420
--- NOTE | 2023-05-08 15:01 | W.DS.TRANS ---
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
-
Discharge Instructions:
Discharge Diagnosis/Procedures #Upper gastrointestinal bleeding/vomiting
#Presentation with coffee-ground emesis
#Suspected gallstones
#Fatty Liver
#Elevated Hepatic Transaminases
#History of brain astrocytoma diagnosed 2006
status post chemotherapy and radiation 2006. He
later developed hydrocephalus and had shunt
#Chronic Bilateral lower extremity weakness and
left hemiparesis
#History of neurogenic bladder. Urinary
incontinence. Able to control bowel movements.
#Primary hypertension.
#Insomnia
#MRI Abdomen Findings as per radiologist:
-Multiple foci of fluid signal intensity within
the liver possibly tiny cysts
-Gallbladder contracted, and abnormal, possibly
chronic cholecystitis vs neoplasm
-Mildly prominent portacaval lymph node
-Tiny 2 mm fluid signal intensity focus in the
tail the pancreas
-Simple cysts in the right kidney.
#CT Head Findings as per radiologist:
-small focus of increased density within the
right parietal lobe at the campos and white matter
junction
-progressive volume loss and decreased density
within the white matter of the right frontal and
parietal lobes
Diet Low Fat,Low Cholesterol,Low Residue
Activity As tolerated
Driving Restrictions No driving
Other Services VN
Instructions: Polyethylene Glycol 3350
Pantoprazole
Stand-Alone Forms:
Changes to Home Medications: Yes
Discharge Medications:
DC Medications w/original date entered in [facility]
propranolol 60 mg capsule,24 hr,extended release 120 mg (2 x 60 mg) PO DAILY #180 caps 05/09/20
trazodone 50 mg tablet 25 mg PO HS PRN sleep 05/05/23
sertraline 100 mg tablet 100 mg PO DAILY Depression 05/06/23
pantoprazole 40 mg tablet,delayed release (Protonix) 40 mg PO DAILY #30 tabs 05/08/23
polyethylene glycol 3350 17 gram oral powder packet (HealthyLax) 17 g PO DAILY #30 ea 05/08/23
Home Medication Changes
Pantoprazole and HealthyLax are new medications.
Tylenol discontinued due to your elevated AST and ALT liver tests.
Doxylamine and Methylpenidate discontinued (records show that you don't take these anymore).
Pending Results: No
Total time spent discharging patient (in min): 39
[2023-05-08 15:55] VITALS: BP 142/74
[2023-05-08] MEDS: STERILE WATER FOR INJECTION 10 ML IV (16:58)
[2023-05-08] MEDS: ROCEPHIN 1000 MG IV (16:58)
--- NOTE | 2023-05-11 10:28 | W.DCSUMMARY ---
Discharge Summary
Discharge Data
Date of Admission: 05/05/23
Date of Discharge: 05/08/23
Total time spent discharging patient (in min): 39
-
Pending Results: No
Hospital Course
67 y/o male who presented with nausea and vomiting coffee-ground emesis. Patient was started on Protonix Drip and gastroenterology was consulted. Patient was also noted to have elevated hepatic transaminases. As per gastroenterology's note and
radiology report, 'Ultrasound of the abdomen shows liver at upper limits of normal. Increased echogenicity throughout consistent with fatty infiltration. Overall echotexture is somewhat coarsened. 1.4 cm anechoic structure in the right hepatic
lobe most consistent with a simple cyst. Smaller 6 mm area also likely represents cyst. There is no intra or extrahepatic biliary dilatation. CBD measures 4 mm. Gallbladder is contracted with gallstones' and 'MRCP done, images reviewed and
report also reviewed. No biliary dilation or filling defects to suggest biliary etiology. GB contracted and not well-visualized and differential included possible malignancy, however US did not show any mass lesions.' Patient hepatic transaminases
improved but the etiology was unclear. Patient's Hepatitis B/C tests were negative and hepatitis A IgM was negative as well.
Since patient was noted to have a history of astrocytoma diagnosed 2006 status post chemotherapy and radiation 2006 (and later developing hydrocephalus and shunt) and since patient had CT Head done 3 to 4 years ago, a repeat CT Head was done, based
on the findings and the fact that patient had no new neurological deficit it was advised on discharge that patient closely follow-up neurology/neurosurgery.
Patient's hepatic transaminases improved and he was stable for discharge.
Discharge Plan
-
Patient Disposition: Home (Routine Discharge)
Discharge Diagnosis/Procedures: #Upper gastrointestinal bleeding/vomiting
#Presentation with coffee-ground emesis
#Suspected gallstones
#Fatty Liver
#Elevated Hepatic Transaminases
#History of brain astrocytoma diagnosed 2006 status post chemotherapy and radiation 2006. He later developed hydrocephalus and had shunt
#Chronic Bilateral lower extremity weakness and left hemiparesis
#History of neurogenic bladder. Urinary incontinence. Able to control bowel movements.
#Primary hypertension.
#Insomnia
#MRI Abdomen Findings as per radiologist:
-Multiple foci of fluid signal intensity within the liver possibly tiny cysts
-Gallbladder contracted, and abnormal, possibly chronic cholecystitis vs neoplasm
-Mildly prominent portacaval lymph node
-Tiny 2 mm fluid signal intensity focus in the tail the pancreas
-Simple cysts in the right kidney.
#CT Head Findings as per radiologist:
-small focus of increased density within the right parietal lobe at the campos and white matter junction
-progressive volume loss and decreased density within the white matter of the right frontal and parietal lobes
Condition: Fair
Diet: Low Fat, Low Cholesterol and Low Residue
Activity: As tolerated
Driving Restrictions: No driving
Other Services: VN
Activity Restrictions/Additional Instructions:
You need to closely follow-up with neurology and/or neurosurgery regarding your CT Head imaging findings from this (April 2023) Hospitalization. If you don't have a neurologist/neurosurgeon to see, a referral was placed on discharge in case you
don't have a neurologist or neurosurgeon.
Instructions: Polyethylene Glycol 3350, Pantoprazole
Referrals:
Roxy Longo CRNP [Specified Professional Personl] - in one to two weeks (Needs follow-up, had changes in brain on CT Head (from April 2023) during hospitalization which need to be followed up)
Yonatan Terry DO [Active] - in one to two weeks (Needs follow-up, had changes in brain on CT Head (from April 2023) during hospitalization which need to be followed up)
Matthieu Lopez MD [Active] - in two to three weeks (Hospital Follow-Up)
Delta Canchola MD [Family Provider] - in less than 1 week (Needs repeat CBC, CMP and Magnesium.)
Additional Discharge Medication Instructions: Pantoprazole and HealthyLax are new medications.
Tylenol discontinued due to your elevated AST and ALT liver tests.
Doxylamine and Methylpenidate discontinued (records show that you don't take these anymore).
Prescriptions:
New
polyethylene glycol 3350 [HealthyLax] 17 gram Powder In Packet
17 g PO DAILY Qty: 30 1RF
pantoprazole [Protonix] 40 mg tablet,delayed release (DR/EC)
40 mg PO DAILY Qty: 30 1RF
Continued
trazodone 50 mg Tablet
25 mg PO HS PRN (Reason: sleep)
sertraline 100 MG tablet
100 mg PO DAILY
propranolol 60 MG capsule,extended release 24 hr
120 mg PO DAILY Qty: 180 0RF
Discontinued
methylphenidate HCl 10 MG tablet
10 mg PO BID@0700,1300
Patient Comments:
pt does not currently take this medication
Doxylamine
0 tab PO HS
Patient Comments:
no longer taking
acetaminophen 325 MG tablet
650 mg PO Q6HPRN PRN (Reason: MILD PAIN) 0RF
Discharge Orders:
Discharge Patient (As Directed); Ordered 05/08/23
Ordered By: Earl Goncalves
Discharge Date and Time
Discharge Date/Time: 05/08/23 18:58
Print Language: IRISH
== END 2023-05-08 18:58 | disposition home or self-care (01) | DRG 378 ==
LOC: 4 WEST ACU 12:04
PROVIDERS: Nurse Practitioner; ADMITTING PHYSICIAN Internal Medicine; ATTENDING PHYSICIAN Hospitalist; CONSULT PHYSICIAN Internal Medicine Gastroenterology; EMERGENCY PHYSICIAN Emergency Medicine; FAMILY PHYSICIAN Family Medicine
DX: K92.0 Hematemesis (principal); G81.94 Hemiplegia, unspecified affecting left nondominant side; G91.9 Hydrocephalus, unspecified; K80.20 Calculus of gallbladder without cholecystitis without obstruction; K30 Functional dyspepsia; I10 Essential (primary) hypertension; N31.9 Neuromuscular dysfunction of bladder, unspecified; G25.0 Essential tremor; R26.9 Unspecified abnormalities of gait and mobility; G47.00 Insomnia, unspecified; K76.0 Fatty (change of) liver, not elsewhere classified; Z85.841 Personal history of malignant neoplasm of brain; Z98.2 Presence of cerebrospinal fluid drainage device; Z92.3 Personal history of irradiation; Z92.21 Personal history of antineoplastic chemotherapy; Z99.3 Dependence on wheelchair
CPT/HCPCS: 70450; 74181; 76700; 80053; 80076; 83735; 85018; 85025; 85027; 86706; 86709; 86803; 86850; 86900; 86901; 87340; 92610; 93005; 96361; 96374; 99285

== ENCOUNTER 2024-02-28 15:37 | Emergency (ER) | payer MEDICARE, OTHER, SELFPAY ==
[2024-02-28] VITALS (7 sets, daily range): BP systolic 113–143; BP diastolic 73–101; BMI 25.6
--- NOTE | 2024-02-28 15:52 | ED.GENMED ---
History of Present Illness
General
Chief Complaint: Abdominal Symptoms
Source: patient and spouse
Time Seen by Provider: 02/28/24 15:39
History of Present Illness
History of Present Illness:
68-year-old male who resides at home with his was brought to the emergency room by ambulance due to decreased oral intake and suspicion for dehydration. Patient has history of a astrocytoma for which she received radiation and chemotherapy.
He also required a ERP MANAGER shunt. He has a left hemiparesis secondary to the above. Patient reportedly has very decreased oral intake for the past 3 days. No nausea or vomiting. No fever. Patient had loose stools yesterday which his family
attributed to pushing fruits and vegetables in an attempt to increase his fluid intake. Patient denies any abdominal pain. Patient states he feels fine. No change in medications recently
Past History
Past History
ED Past Medical History: Cancer (Brain astrocytoma with radiation and chemotherapy 2006 and hydrocephalus w/ shunt placement)
ED Past Surgical History: Other (brain biopsy and shunt placement)
Social History
Tobacco: Non-smoker
Alcohol: None
Drug: None
Personal:
Living: with family
Employment: Employed
Family History
Family History: Other (n/c)
Phy Exam
Physical Exam
Physical Exam:
General: Awake, Alert, Oriented X3. No acute distress but appears chronically ill
Vitals: unremarkable
Head: Atraumatic
Eyes: Pupils equal, EOMI
Throat: Airway intact, no exudates, dry mucosa
Neck: Trachea midline
Lungs: Clear and equal b/l
Heart: Regular rate, no murmurs
Abd: Soft, Nontender, No pulsatile mass
Neuro: Left hemiparesis which is baseline
Skin: Warm, dry, no rash
Extremities: pulses equal b/l, no edema
Course
Orders/Labs/Results
Orders:
Orders
02/28/24 15:50
Complete Blood Count/With Diff Urgent
Comprehensive Metabolic Panel Urgent
Lipase Urgent
02/28/24 15:51
0.9% Sodium Chloride 1000 ml [Nss] 1,000 ml IV BOLUS
02/28/24 15:56
CT Head W/o Iv Contrast Urgent
Comment:
Reason For Exam: less alert, hx of ERP MANAGER shunt
02/28/24 16:04
COVID-19 Antigen Urgent
Source: Nasal Swab
Influenza A+B Rapid Molecular Urgent
RAYSHAWN Source: Nasal Swab
Specimen Description:
02/28/24 17:43
Urinalysis Reflex To Culture Urgent
Date Specimen was Collected: 02/28/24
Time Specimen was Collected: 17:42
Urine Microscopic Reflex Cult Urgent
Urine Culture Urgent
RAYSHAWN Source: U
Specimen Description:
Date Specimen was Collected: 02/28/24
Time Specimen was Collected: 17:42
Abnormal Lab Results
02/28/24 02/28/24
15:50 17:43
MCV 96.4 H fL
(80.0-94.0)
MCH 33.4 H pg
(27.0-31.0)
MPV 10.5 H fL
(7.4-10.4)
Glucose 128 H mg/dl
(70-99)
ALT 60 H U/L
(0-50)
Leukocyte Esterase Rfl Trace A
(Negative)
Urine Bacteria (Reflex) Moderate A
(Negative)
02/28/24 15:50
02/28/24 15:50
Vital Signs
Initial and Last Documented VS:
Initial Vital Signs
Temp Pulse Resp Pulse Ox
98.1 F 73 18 97
02/28/24 15:40 02/28/24 15:40 02/28/24 15:40 02/28/24 15:40
Last Documented Vital Signs
Temp Pulse Resp BP Pulse Ox
98.1 F 77 15 133/80 97
02/28/24 15:40 02/28/24 20:15 02/28/24 20:01 02/28/24 20:01 02/28/24 20:15
MDM/Problems Addressed
Differential Diagnosis Includes:
Dehydration, renal failure, electrolyte abnormality
MDM/Problems Addressed:
Patient presents to the emergency room with essentially decreased oral intake. He is not vomiting but simply declines fluids were offered to him. Patient states the problem is that his family offers him only water which she does not care to drink.
His workup here reveals very reassuring labs. He tolerated oral intake here. No indication for hospitalization. Patient will be discharged home. He did have a head CT given his history of a ERP MANAGER shunt. This appears unchanged.
*Radiology
Radiology exam reviewed: radiology read reviewed
*Pulse Oximetry
Patient hypoxic: no
*Critical Care Note
Total Time (30-74mins, 75-104mins- exclusive of procedures): Not Applicable
ED Attending Note
-
Portions of this chart may have been created with voice recognition software.� Occasional wrong word or��sound alike� substitutions may have occurred due to the inherent limitations of voice recognition software.
Discharge Plan
Departure
Patient Disposition: Home (Routine Discharge)
Date of Disposition: 02/28/24
Time of Disposition: 20:13
Patient with high blood pressure during this ER visit?: No
Condition: Good
Discharge Problem:
Dehydration
Instructions: Dehydration, Adult (DC)
Prescriptions:
No Action
trazodone 50 mg Tablet
25 mg PO HS PRN (Reason: sleep)
sertraline 100 MG tablet
100 mg PO DAILY
polyethylene glycol 3350 [HealthyLax] 17 gram Powder In Packet
17 g PO DAILY Qty: 30 1RF
pantoprazole [Protonix] 40 mg tablet,delayed release (DR/EC)
40 mg PO DAILY Qty: 30 1RF
propranolol 60 MG capsule,extended release 24 hr
120 mg PO DAILY Qty: 180 0RF
Referrals:
Delta Canchola MD [Family Provider] -
Interventions
Interventions:
*Risk Screen - Suicide Last Done: 02/28/24 15:51
*General Assessment Last Done: 02/28/24 15:51
*Neglect/Abuse Screening Last Done: 02/28/24 15:51
*ED COVID-19 Vaccine History Last Done: 02/28/24 15:51
LK-Hnbezy-Cbntkfiyxr Assessment Last Done: 02/28/24 15:59
Discharge Date and Time
Print Language: OCCITAN
[2024-02-28] MEDS: NSS 1000 IV (15:55)
[2024-02-28 16:04] LABS: % Basophils 0.9 % (0-2); % Eosinophils 3.7 % (0-6); % Immature Granulocytes 0.2 % (0-0.5); % Lymphocytes 28.5 % (20.5-51.1); % Monocytes 5.9 % (1.7-9.3); % Neutrophils 60.8 % (42.2-75.2); Absolute Basophils 0.1 10^3/uL (0-0.2); Absolute Eosinophils 0.2 10^3/uL (0-0.7); Absolute Lymphocytes 1.6 10^3/uL (1.2-3.4); Absolute Monocytes 0.3 10^3/uL (0.1-0.6); Absolute Neutrophils 3.5 10^3/uL (1.4-6.5); Hematocrit 45.6 % (39.0-52.0); Hemoglobin 15.8 g/dL (13.0-18.0); Mean Corp Hgb Conc. 34.6 g/dL (33.0-37.0); Mean Corpuscular Hgb 33.4 pg (27.0-31.0); Mean Corpuscular Volume 96.4 fL (80.0-94.0); Mean Platelet Volume 10.5 fL (7.4-10.4); Nucleated Red Blood Cells % 0 % (-); Platelet Count 209 10^3/uL (130-400); Red Blood Cell Count 4.73 10^6/uL (4.70-6.10); Red Cell Dist. Width 12.4 % (11.5-14.5); White Blood Cell Count 5.7 10^3/uL (4.8-10.8)
[2024-02-28 16:21] LABS: ALT (SGPT) 60 U/L (0-50); AST (SGOT) 36 U/L (17-59); Albumin 4.2 g/dl (3.5-5.0); Alkaline Phosphatase 95 U/L (38-126); Blood Urea Nitrogen 18 mg/dl (9-20); Calcium 9.7 mg/dl (8.4-10.2); Carbon Dioxide 29 mmol/L (22-30); Chloride 103 mmol/L (98-107); Estimated Creatinine Clearance 66 ml/min; Glucose 128 mg/dl (70-99); Potassium 4.2 mmol/L (3.5-5.1); Sodium 140 mmol/L (135-145); Total Bilirubin 0.3 mg/dl (0.2-1.3); Total Protein 6.8 g/dl (6.3-8.2); eGFR > 60.00
[2024-02-28 16:40] LABS: COVID-19 Antigen Negative (Negative)
[2024-02-28 16:55] LABS: Lipase 146 U/L (23-300)
[2024-02-28 17:52] LABS: Urine Albumin Negative (Neg - Trace); Urine Bilirubin Negative (Negative); Urine Character Clear (Clear); Urine Color Yellow; Urine Glucose Negative (Negative); Urine Ketone Negative (Negative); Urine Leukocyte Trace (Negative); Urine Nitrite Negative (Negative); Urine Occult Blood Negative (Negative); Urine Specific Gravity 1.025 (<1.030); Urine Urobilinogen Negative (Neg - 1+)
[2024-02-28 18:00] LABS: Urine Mucus Few; Urine Red Blood Cell 0-2 /HPF (0-2)
[2024-02-28 18:01] LABS: Urine Bacteria Moderate (Negative)
== END 2024-02-28 21:29 | disposition home or self-care (01) ==
LOC: EMR 15:37
PROVIDERS: EMERGENCY PHYSICIAN Emergency Medicine; FAMILY PHYSICIAN Family Medicine
DX: E86.0 Dehydration (principal); Z11.52 Encounter for screening for COVID-19; Z98.2 Presence of cerebrospinal fluid drainage device
CPT/HCPCS: 99284; 96360; 51798; 51701; 70450; 80053; 81003; 81015; 83690; 85025; 87086; 87502; 87811